=== PATIENT | male | born 2000 | race Caucasian/White ===

== ENCOUNTER 2018-08-06 14:35 | Emergency (ER) | payer OTHER ==
[~2018-08-06] VITALS: Ht 175.3 cm; Wt 76.4 kg
[2018-08-06 14:37] VITALS: BP 138/68; PULSE 80; TEMP 98
[2018-08-06] MEDS ORDERED: CEPHALEXIN500 M1 PO (16:27)
[2018-08-06] MEDS ORDERED: ULTRAM 50MG TAB50 MG PO (16:27)
== END 2018-08-06 16:41 | disposition home or self-care (01) ==
LOC: COL.ER 14:35
DX: K08.89 Other specified disorders of teeth and supporting structures (principal); Z88.0 Allergy status to penicillin